=== PATIENT | male | born 1945 | race Caucasian/White ===

== ENCOUNTER → 2018-06-13 | Outpatient (CLI) | payer MEDICARE, OTHER ==
[~2018-06-13] MED LIST: ASPI81CH PO; BUPR100 PO; CARV3.125 PO; Hydrocodone-Ap1 EA26 PO; MULVITMIND PO
== END | disposition home or self-care (01) ==
LOC: PLD 07:43 → LAB SHORT 07:43
DX: D48.5 Neoplasm of uncertain behavior of skin (principal)
CPT/HCPCS: 88305

== ENCOUNTER → 2021-06-27 | Outpatient (CLI) | payer MEDICARE, OTHER | END | disposition home or self-care (01) | LOC: LAB SHORT 08:42 → LAB 08:42 | DX: C44.329 Squamous cell carcinoma of skin of other parts of face (principal) | CPT/HCPCS: 88305 ==

== ENCOUNTER 2022-08-22 16:33 | Inpatient (IN) | payer MEDICARE, OTHER ==
[~2022-08-22] VITALS: Ht 180.3 cm; Wt 81.7 kg
[2022-08-22 17:09] LABS: BASOPHILS ABSOLUTE AUTO 0.02 K/mm3 (0.00-0.23); BASOPHILS PERCENT AUTO 0 % (0-2); EOSINOPHILS ABSOLUTE AUTO 0.04 K/mm3 (0.00-0.68); EOSINOPHILS PERCENT AUTO 0 % (0-6); Hematocrit 32.6 % (37.0-53.0); Hemoglobin 10.7 g/dL (13.5-17.5); IMMATURE GRAN ABSOLUTE AUTO 0.05 K/mm3 (0.00-0.10); IMMATURE GRAN PERCENT AUTO 1 % (0-1); LYMPHOCYTES ABSOLUTE AUTO 0.59 K/mm3 (0.84-5.20); LYMPHOCYTES PERCENT AUTO 6 % (21-46); MONOCYTES ABSOLUTE AUTO 0.52 K/mm3 (0.16-1.47); MONOCYTES PERCENT AUTO 5 % (4-13); Mean Corpuscular HGB 29.6 pg (26.0-34.0); Mean Corpuscular HGB Conc 32.8 g/dL (31.5-36.5); Mean Corpuscular Volume 90 fL (80-100); Mean Platelet Volume 10.5 fL (9.1-12.4); NEUTROPHILS ABSOLUTE AUTO 9.38 K/mm3 (1.96-9.15); NEUTROPHILS PERCENT AUTO 88 % (41-73); Platelet Count 222 K/mm3 (150-400); RDW Coefficient Variation 13.6 % (11.7-14.2); Red Blood Cell Count 3.62 M/mm3 (4.30-5.90)
[2022-08-22 17:46] LABS: Influenza A, PCR NEGATIVE (NEGATIVE); Influenza B, PCR NEGATIVE (NEGATIVE); SARS-Cov-2 (COVID-19) PCR, MMC NEGATIVE (NEGATIVE)
[2022-08-22 18:09] LABS: Source, Urine Straight Cath
[2022-08-22 18:16] LABS: Resp Syncytial Virus, PCR POSITIVE (NEGATIVE)
[2022-08-22 18:42] LABS: Appearance, Urine Hazy (Clear); Bilirubin, Urine Neg (Neg); Blood, Urine 5+ (Neg); Color, Urine Yellow (P-Yellow); Glucose Qualitative, Urine Neg (Neg); Ketones, Urine Neg (Neg); Leukocyte Esterase, Urine 2+ (Neg); Nitrite, Urine Neg (Neg); Protein, Urine 2+ (Neg); Urobilinogen, Urine 1+ (Normal)
[2022-08-22 18:46] LABS: Albumin/Globulin Ratio 0.8 (0.8-1.8); Bilirubin, Total 0.5 mg/dL (0.1-1.0); Bun/Creatinine Ratio 13.5 (12.0-20.0); Calcium, Blood 8.1 mg/dL (8.5-10.1); Creatinine, Blood 1.33 mg/dL (0.60-1.20); Potassium, Blood 4.1 mmol/L (3.5-5.5)
[2022-08-22 18:58] LABS: Granular Casts 0-2 /lpf (0)
[2022-08-22 18:59] LABS: Amorphous Light (0-Heavy); Bacteria Mod /hpf; Mucus Light (0-Heavy); Renal Epithelial Rare /hpf (0-Rare); Squamous Epithelial Cells Few /hpf (Few)
[2022-08-22] MEDS ORDERED: MULVITA PO (23:00)
[2022-08-23 05:15] LABS: BASOPHILS ABSOLUTE AUTO 0.03 K/mm3 (0.00-0.23); BASOPHILS PERCENT AUTO 0 % (0-2); EOSINOPHILS ABSOLUTE AUTO 0.02 K/mm3 (0.00-0.68); EOSINOPHILS PERCENT AUTO 0 % (0-6); Hematocrit 29.9 % (37.0-53.0); Hemoglobin 9.8 g/dL (13.5-17.5); IMMATURE GRAN ABSOLUTE AUTO 0.07 K/mm3 (0.00-0.10); IMMATURE GRAN PERCENT AUTO 1 % (0-1); LYMPHOCYTES ABSOLUTE AUTO 1.55 K/mm3 (0.84-5.20); LYMPHOCYTES PERCENT AUTO 12 % (21-46); MONOCYTES ABSOLUTE AUTO 0.81 K/mm3 (0.16-1.47); MONOCYTES PERCENT AUTO 6 % (4-13); Mean Corpuscular HGB 29.5 pg (26.0-34.0); Mean Corpuscular HGB Conc 32.8 g/dL (31.5-36.5); Mean Corpuscular Volume 90 fL (80-100); Mean Platelet Volume 11.3 fL (9.1-12.4); NEUTROPHILS ABSOLUTE AUTO 10.51 K/mm3 (1.96-9.15); NEUTROPHILS PERCENT AUTO 81 % (41-73); Platelet Count 205 K/mm3 (150-400); RDW Coefficient Variation 13.7 % (11.7-14.2); RDW Standard Deviation 45.1 fL (35.1-46.3); Red Blood Cell Count 3.32 M/mm3 (4.30-5.90); White Blood Cell Count 12.99 K/mm3 (4.00-11.30)
[2022-08-23 05:39] LABS: Albumin, Blood 2.7 g/dL (3.4-5.0); Albumin/Globulin Ratio 0.7 (0.8-1.8); Bilirubin, Total 0.6 mg/dL (0.1-1.0); Bun/Creatinine Ratio 14.5 (12.0-20.0); Calcium, Blood 8.3 mg/dL (8.5-10.1); Creatinine, Blood 1.45 mg/dL (0.60-1.20); Globulin, Blood 3.7 g/dL (2.2-4.0); Potassium, Blood 4.6 mmol/L (3.5-5.5); Total Protein, Blood 6.4 g/dL (6.4-8.2)
--- NOTE | 2022-08-23 07:15 | NUR ---
ASSUMED CARE OF PATIENT PATIENT RESTING IN BED AT THIS TIME. APPEARS COMFORTABLE, DENIES ANY NEEDS CURRENTLY. DENTURES HANGING OUT OF MOUTH, OFFERRED TO PLACE AT BEDSIDE FOR PATIENT IN CUP, PATIENT CHOOSES TO KEEP IN MOUTH. CALL LIGHT IN REACH.
--- NOTE | 2022-08-23 16:34 | NUR ---
SHIFT SUMMARY NO ACUTE CHANGES THIS SHIFT. PATIENT WORKED WITH PHYSICAL THERAPY AND DID WELL, ALTHOUGH VERY WEAK. EATING AND DRINKING OKAY, POOR APETITE. DENIES PAIN, N/V. PETTIT CATH IN PLACE, DRAINING TO GRAVITY. 4L O2 IN PLACE TO MAINTAIN O2 SATS >92%. DENIES SOB/DIFFICULTY BREATHING. NON-PRODUCTIVE COUGH, OCCASSIONAL. CALL LIGHT IN REACH, HAS NOT DEMONSTARTED USE THIS SHIFT BUT VERBALIZES UNDERSTANDING OF USE. WILL REPORT TO PERFECTO ALVAREZ AT 1900.
[2022-08-24 04:49] LABS: Hematocrit 29.1 % (37.0-53.0); Hemoglobin 9.3 g/dL (13.5-17.5); Mean Corpuscular HGB 28.8 pg (26.0-34.0); Mean Corpuscular Volume 90 fL (80-100); Mean Platelet Volume 11.1 fL (9.1-12.4); Platelet Count 216 K/mm3 (150-400); RDW Coefficient Variation 13.8 % (11.7-14.2); RDW Standard Deviation 45.6 fL (35.1-46.3); Red Blood Cell Count 3.23 M/mm3 (4.30-5.90); White Blood Cell Count 10.22 K/mm3 (4.00-11.30)
[2022-08-24 05:12] LABS: Bun/Creatinine Ratio 15.7 (12.0-20.0); Calcium, Blood 8.5 mg/dL (8.5-10.1); Creatinine, Blood 1.34 mg/dL (0.60-1.20); Potassium, Blood 4.6 mmol/L (3.5-5.5)
--- NOTE | 2022-08-24 05:22 | NUR ---
SHIFT SUMMARY: pt A/Ox2. Bed alarms utilized as pt is not call light appropriate. No changes overnight. He denies nausea, pain, SOB, and dizziness. He is on 3L of oxygen. His lantigua is patent and has adequate output.
--- NOTE | 2022-08-24 18:30 | NUR ---
PATIENT CONFUSED. STATES STM IS IMPAIRED. ALSO VERIFIED THAT PATIENT HAS PARKINSONS DISEASE. PATIENT IS IN ISOLATION FOR RSV. HE HAS HAD BLOOD CULTURES AND #2 CAME BACK GRAM POSITIVE [facility]- WAS CALLED TO PROVIDER. 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 PATIENT HAS DENTURES AND IS ABLE TO SLOWLY EAT WITH HIS DENTURES IN PLACE. HE IS COOPERATIVE, FRIENDLY. HARD TO UNDERSTAND WITH MUMBLED SPEECH. DENIES PAIN. LUNGS SOUND DIMINISHED, BUT WHEN COUGHING, CONGESTION CAN BE HEARD. SPUTUM IS CLEAR-NOTED WHEN HE WAS ABLE TO GET SOME UP AND OUT THIS EVENING. PETTIT IN PLACE FOR RETENTION. OT/PT WORKED WITH PATIENT TODAY. HE WAS UP IN [facility] FOR A SHORT TIME BEFORE WANTING TO RETURN TO BED. 2 PERSON ASSIST WITH GAIT BELT. OXYGEN IS STILL ON AT 3.5LNC.
[2022-08-25 05:28] LABS: Hematocrit 30.2 % (37.0-53.0); Hemoglobin 9.9 g/dL (13.5-17.5); Mean Corpuscular HGB Conc 32.8 g/dL (31.5-36.5); Mean Corpuscular Volume 89 fL (80-100); Platelet Count 240 K/mm3 (150-400); RDW Coefficient Variation 13.5 % (11.7-14.2); RDW Standard Deviation 44.2 fL (35.1-46.3); RETICULOCYTE COUNT PERCENT 1.38 % (0.50-2.50); Red Blood Cell Count 3.41 M/mm3 (4.30-5.90)
--- NOTE | 2022-08-25 05:56 | NUR ---
SHIFT SUMMARY: Pt A/Ox2-3, bed alarms utilized as pt doesnt use his call light. No changes overnight. pt denied pain, nausea, SOB, dizziness. He remained on 3.5L of o2 overnight. His Mccarty is patent and has adequate output. This shift pt seemed more alert and talkative than the previous shift, although speech is slow and mumbled.
[2022-08-25 06:18] LABS: Bun/Creatinine Ratio 16.3 (12.0-20.0); Calcium, Blood 8.8 mg/dL (8.5-10.1); Creatinine, Blood 1.41 mg/dL (0.60-1.20); Percent Saturation 17.4 % (20.0-50.0); Potassium, Blood 4.4 mmol/L (3.5-5.5)
[2022-08-25] MEDS ORDERED: GUAI600T33 PO (14:24)
[2022-08-25] MEDS ORDERED: AZIT500 PO (14:24)
[2022-08-25] MEDS ORDERED: LACT PO (14:25)
[2022-08-25] MEDS ORDERED: CEPH500 PO (14:25)
--- NOTE | 2022-08-25 16:23 | NUR ---
DISCHARGE PT A&OX4, @ BEDSIDE DURING DC. CAREGIVER TO CONTROL OPERATOR FLOW COAT OX BEFORE PT TRANSFER. PT AND PROVIDED W/ WRITTEN AND VERBAL DIRECTION PROVIDED. HODAN Philip/BINDU- NO VIOD PRIOR TO DC, DR. LINDQUIST. IV DCED. MEDS FAXED TO [facility].
== END 2022-08-25 16:10 | disposition home health service (06) | DRG 871 ==
LOC: ER 16:33 → ERHOLD 20:25 → MEDS 22:29
PROVIDERS: Emergency Medicine; Family Medicine; Internal Medicine; ADMIT Internal Medicine
DX: A41.89 Other specified sepsis (principal); G92.8 Other toxic encephalopathy; J12.1 Respiratory syncytial virus pneumonia; J96.01 Acute respiratory failure with hypoxia; N39.0 Urinary tract infection, site not specified; R65.20 Severe sepsis without septic shock; D63.1 Anemia in chronic kidney disease; N18.30 Chronic kidney disease, stage 3 unspecified; Z85.51 Personal history of malignant neoplasm of bladder; I12.9 Hypertensive chronic kidney disease with stage 1 through stage 4 chronic kidney disease, or unspecified chronic kidney disease; F17.210 Nicotine dependence, cigarettes, uncomplicated; Z88.5 Allergy status to narcotic agent; Z79.82 Long term (current) use of aspirin; Z79.899 Other long term (current) drug therapy; Z20.822 Contact with and (suspected) exposure to COVID-19; Z28.82 Immunization not carried out because of caregiver refusal
CPT/HCPCS: 0241U; 36415; 51702; 71046; 80048; 80053; 81001; 82728; 83540; 83550; 83605; 83880; 84145; 84484; 85025; 85027; 85045; 87040; 87077; 87086; 87186; 93005; 93010; 94760; 96374-59; 97112; 97129; 97130; 97162; 97166; 97530; 99285-25; A9270; J0696; J1650; J7030

== ENCOUNTER 2023-10-19 18:52 | Emergency (ER) | payer OTHER ==
[~2023-10-19] VITALS: Ht 162.6 cm; Wt 74.8 kg
[~2023-10-19 18:52] MED LIST changes: +AZIT500 PO; +CEPH500 PO; +GUAI600T33 PO; +LACT PO; +MULVITA PO
[2023-10-19] MEDS ORDERED: CARBIDOPA-LEVO1 EA15 PO (19:37)
[2023-10-19] MEDS ORDERED: [UNRECOGNIZED DRUG - CODE] PO (19:38)
[2023-10-19 19:52] LABS: BASOPHILS ABSOLUTE AUTO 0.02 K/mm3 (0.00-0.23); BASOPHILS PERCENT AUTO 0 % (0-2); EOSINOPHILS ABSOLUTE AUTO 0.05 K/mm3 (0.00-0.68); EOSINOPHILS PERCENT AUTO 1 % (0-6); Hematocrit 34.7 % (37.0-53.0); Hemoglobin 11.1 g/dL (13.5-17.5); IMMATURE GRAN ABSOLUTE AUTO 0.02 K/mm3 (0.00-0.10); IMMATURE GRAN PERCENT AUTO 0 % (0-1); LYMPHOCYTES ABSOLUTE AUTO 0.43 K/mm3 (0.84-5.20); LYMPHOCYTES PERCENT AUTO 5 % (21-46); MONOCYTES ABSOLUTE AUTO 0.65 K/mm3 (0.16-1.47); MONOCYTES PERCENT AUTO 7 % (4-13); Mean Corpuscular HGB 28.5 pg (26.0-34.0); Mean Corpuscular Volume 89 fL (80-100); Mean Platelet Volume 10.4 fL (9.1-12.4); NEUTROPHILS ABSOLUTE AUTO 8.47 K/mm3 (1.96-9.15); NEUTROPHILS PERCENT AUTO 88 % (41-73); Platelet Count 238 K/mm3 (150-400); RDW Coefficient Variation 14.4 % (11.7-14.2); RDW Standard Deviation 46.3 fL (35.1-46.3); Red Blood Cell Count 3.89 M/mm3 (4.30-5.90); White Blood Cell Count 9.64 K/mm3 (4.00-11.30)
[2023-10-19 20:01] LABS: Albumin, Blood 3.2 g/dL (3.4-5.0); Albumin/Globulin Ratio 0.7 (0.8-1.8); Bilirubin, Total 0.6 mg/dL (0.1-1.0); Bun/Creatinine Ratio 16.3 (12.0-20.0); Calcium, Blood 8.6 mg/dL (8.5-10.1); Creatinine, Blood 1.53 mg/dL (0.60-1.20); Globulin, Blood 4.4 g/dL (2.2-4.0); Potassium, Blood 4.7 mmol/L (3.5-5.5); Total Protein, Blood 7.6 g/dL (6.4-8.2)
[2023-10-19 20:20] LABS: Influenza A, PCR NEGATIVE (NEGATIVE); Influenza B, PCR NEGATIVE (NEGATIVE); Resp Syncytial Virus, PCR NEGATIVE (NEGATIVE)
[2023-10-19 20:47] LABS: SARS-Cov-2 (COVID-19) PCR, MMC POSITIVE (NEGATIVE)
[2023-10-19 23:26] VITALS: BP 110/63
== END 2023-10-19 23:26 | disposition home or self-care (01) ==
LOC: ER 18:52
PROVIDERS: Emergency Medicine
DX: U07.1 COVID-19 (principal); E86.0 Dehydration; G20.A1 Parkinson's disease without dyskinesia, without mention of fluctuations; R41.0 Disorientation, unspecified; Z88.5 Allergy status to narcotic agent; Z79.899 Other long term (current) drug therapy; I12.9 Hypertensive chronic kidney disease with stage 1 through stage 4 chronic kidney disease, or unspecified chronic kidney disease; N18.30 Chronic kidney disease, stage 3 unspecified; Z87.891 Personal history of nicotine dependence
CPT/HCPCS: 0241U; 71045; 80053; 85025; 93005; 93010; 96374; 99285-25; J1170